=== PATIENT | male | born 1975 | race Caucasian/White ===

== ENCOUNTER 2017-01-23 11:50 | Day surgery (SDC) | payer OTHER ==
[2017-01-20 15:50] VITALS: BMI 25.6
[2017-01-23] MEDS ORDERED: PROPOFOL 20 ML ONE (12:06)
[2017-01-23 13:37] VITALS: TEMP 98.2
[2017-01-23 14:03] VITALS: BP 120/66; PULSE 66
--- NOTE | 2017-01-25 13:01 | PATH ---
Surgical Pathology Report Patient Name: RAUL VANG [facility]. Rec. #: [id number] /Age/Gender: 1975 (Age: 41) / M Account: [id number] Location: [facility]-ENDOSCOPY Taken: 01/23/2017 Received: 01/23/2017 Reported: 01/25/2017 Physicians: Skinny Mays M.D. Specimen(s) Received A: BX DUODENUM B: BX ANTRUM C: BX ESOPHAGUS Clinical History GERD Rule out celiac disease, gastritis, rule out Millan's Final Diagnosis A. DUODENUM, BIOPSY: DUODENAL MUCOSA WITH NO PATHOLOGIC CHANGES. NO HISTOLOGIC EVIDENCE OF GLUTEN SENSITIVE ENTEROPATHY (CELIAC SPRUE) IDENTIFIED. B. STOMACH, ANTRUM, BIOPSY: REACTIVE GASTROPATHY. IMMUNOSTAIN FOR H. PYLORI IS NEGATIVE. C. ESOPHAGUS, BIOPSY: SQUAMOUS AND GASTRIC MUCOSA WITH CHRONIC INFLAMMATION AND PAPILLOMATOSIS SUGGESTIVE OF REFLUX ESOPHAGITIS. NO INTESTINAL METAPLASIA IDENTIFIED (NO MILLAN'S IDENTIFIED). Electronically Signed Min Adames M.D. Gross Description A. Received in formalin, labeled "duodenum" are 2 [place], irregular portions of soft tissue measuring 0.3 and 0.7 cm. in greatest dimension. The specimens are submitted in toto in one cassette. B. Received in formalin, labeled "antrum" are 2 [place], irregular portions of soft tissue measuring 0.3 and 0.5 cm. in greatest dimension. The specimens are submitted in toto in one cassette. C. Received in formalin, labeled "esophagus" is a lunsford, irregular portion of soft tissue measuring 0.5 cm. in greatest dimension. The specimen is submitted in toto in one cassette. 01/24/2017 saudi01/24/2017
== END 2017-01-23 14:05 | disposition home or self-care (01) ==
LOC: FASU-ENDO 11:50
PROVIDERS: ATTEND Internal Medicine Gastroenterology
PROC: 0DB48ZX Excision of Esophagogastric Junction, Via Natural or Artificial Opening Endoscopic, Diagnostic (ICD-10-PCS; 2017-01-23)
PROC: 0DB98ZX Excision of Duodenum, Via Natural or Artificial Opening Endoscopic, Diagnostic (ICD-10-PCS; principal; 2017-01-23 13:10)
PROC: 0DB68ZX Excision of Stomach, Via Natural or Artificial Opening Endoscopic, Diagnostic (ICD-10-PCS; 2017-01-23 13:10)
DX: R12 Heartburn (principal); K31.9 Disease of stomach and duodenum, unspecified; K31.89 Other diseases of stomach and duodenum; K22.9 Disease of esophagus, unspecified
CPT/HCPCS: 88305-TC; 88342-TC